=== PATIENT | male | born 1965 | race Caucasian/White ===

== ENCOUNTER 2018-07-03 10:27 | Day surgery (SDC) | payer MEDICAID ==
[2018-07-02 10:08] LABS: BASOPHILS # (AUTO) 0.1 X10'3 (0-0.2); BASOPHILS % (AUTO) 0.9 % (0-1); EOSINOPHILS # (AUTO) 0.1 X10'3 (0-0.9); EOSINOPHILS % (AUTO) 2.3 % (0-6); HEMATOCRIT 47.6 % (42.0-52.0); HEMOGLOBIN 15.9 g/dl (14.0-17.9); LYMPHOCYTES # (AUTO) 2.5 X10'3 (1.1-4.8); LYMPHOCYTES % (AUTO) 38.5 % (21-51); MEAN CORPUSCULAR HEMOGLOBIN 31.5 PG (27.0-31.0); MEAN CORPUSCULAR HGB CONC 33.4 g/dL (33.0-36.5); MEAN CORPUSCULAR VOLUME 94.2 FL (78-98); MEAN PLATELET VOLUME 8.2 FL (7.4-10.4); MONOCYTES # (AUTO) 0.8 X10'3 (0-0.9); MONOCYTES % (AUTO) 12.3 % (2-12); NEUTROPHILS # (AUTO) 2.9 X10'3 (1.8-7.7); PLATELET COUNT 141 X10'3 (140-440); RED BLOOD COUNT 5.05 X10'6 (4.70-6.10); RED CELL DISTRIBUTION WIDTH 13.6 % (11.5-14.5); WHITE BLOOD COUNT 6.4 X10'3 (4.5-11.0)
[2018-07-02 10:18] LABS: PARTIAL THROMBOPLASTIN TIME 27 SECONDS (22-32); PROTHROMBIN TIME 10.5 SECONDS (9.0-12.0)
[2018-07-02 10:26] LABS: ALANINE AMINOTRANSFERASE 36 U/L (12-78); ALBUMIN 3.5 G/DL (3.4-5.0); ALBUMIN/GLOBULIN RATIO 0.9 (1.1-1.5); ALKALINE PHOSPHATASE 86 IU/L (46-116); ANION GAP 4 (8-16); ASPARTATE AMINO TRANSFERASE 26 U/L (10-37); BILIRUBIN,TOTAL 0.5 MG/DL (0.1-1.0); BLOOD UREA NITROGEN 21 MG/DL (7-18); BUN/CREATININE RATIO 15.3 (5.4-32.0); CALCIUM 9.1 MG/DL (8.5-10.1); CHLORIDE 101 MMOL/L (99-107); CREATININE 1.37 MG/DL (0.60-1.10); GLUCOSE 74 MG/DL (70-104); POTASSIUM 4.1 MMOL/L (3.5-5.1); SODIUM 137 MMOL/L (135-145); TOTAL CARBON DIOXIDE 31.7 MMOL/L (24-32); TOTAL PROTEIN 7.5 G/DL (6.4-8.2); eGFR 54 ML/MIN
[2018-07-03] VITALS (12 sets, daily range): BP systolic 108–129; BP diastolic 51–84
[~2018-07-03] VITALS: Ht 188 cm; Wt 120.2 kg
[~2018-07-03 10:27] MED LIST: ALBU8.5H8 IH; ASPI-611 PO; CARV3.122 PO; FURO40TA4 PO; LISI2.5T89 PO; MAGN400C PO; POTA20TA19 PO
[2018-07-03] MEDS ORDERED: nitroGLYCERIN 0.4mg SUBLingual tab SL PRN (10:45)
[2018-07-03] MEDS ORDERED: diphenhydrAMINE 25mg capsule PO PRN (10:50)
[2018-07-03] MEDS ORDERED: normal saline 1,000 ML IV SCH (10:50)
[2018-07-03] MEDS ORDERED: LORazepam 0.5 MG tablet PO PRN (10:50)
[2018-07-03] MEDS ORDERED: DIGO125T PO (11:00)
[2018-07-03] MEDS ORDERED: midazolam 2 mg/2 ml injection ONE (11:58)
[2018-07-03] MEDS ORDERED: iohexol 350 MG/ML 50ML vial IV ONE ×2 (11:58→12:41)
[2018-07-03] MEDS ORDERED: iohexol 350MG/ML 100ml bottle IV ONE (11:58)
[2018-07-03] MEDS ORDERED: fentaNYL/PF 50MCG/1 ML 2ML syringe ONE (11:58)
[2018-07-03] MEDS ORDERED: LIDOcaine 1% (10mg/ml)w/preservative injection 20ml MDV ONE (11:58)
[2018-07-03] MEDS ORDERED: ondansetron/PF 4mg/2ml inj IV PRN (13:10)
[2018-07-03] MEDS ORDERED: proCHLORperazine 10 MG/2 ml inj IV PRN (13:10)
[2018-07-03] MEDS ORDERED: HYDROcodone/acetaminophen 10/325mg tab PO PRN (13:10)
[2018-07-03] MEDS ORDERED: HYDROcodone/acetaminophen 5mg/325mg tablet PO PRN (13:10)
[2018-07-03] MEDS ORDERED: OXAZEpam 15mg capsule PO PRN (13:10)
== END 2018-07-03 18:55 | disposition home or self-care (01) ==
LOC: SSTAY O 10:27
PROVIDERS: ATTEND Internal Medicine Cardiovascular Disease
DX: I25.10 Atherosclerotic heart disease of native coronary artery without angina pectoris (principal); I42.9 Cardiomyopathy, unspecified
CPT/HCPCS: 36415; 71046; 80053; 80162; 83880; 85025; 85610; 85730; 93458; 93567; 99152; 99153; A6257; J1644; J2001; J2250; J3010; J7030; Q0163; Q9967; A4620; C1760; C1769